=== PATIENT | female | born 1945 | race Hispanic/Latino ===

== ENCOUNTER 2019-06-19 05:04 | Emergency (ER) | payer OTHER, MEDICARE ==
[~2019-06-19 05:04] MED LIST: AMLODIPINE PO; JENTADUETO PO; NADO40TA19 PO; OMEP-272 PO; ROSU10TA22 PO; VALSARTAN PO
[2019-06-19 05:36] LABS: BASOPHILS % (AUTO) 0.7 % (0.0-5.0); EOSINOPHILS % (AUTO) 2.1 % (0.0-8.0); HEMATOCRIT 40.8 % (36-48); LYMPHOCYTES % (AUTO) 45.2 % (21.0-51.0); MEAN CORPUSCULAR HEMOGLOBIN 29.3 pg (27.0-33.0); MEAN CORPUSCULAR HGB CONC 34.1 g/dL (32.0-36.0); MONOCYTES % (AUTO) 6.7 % (3.0-13.0); NEUTROPHILS % (AUTO) 45.3 % (40.0-77.0); NUCLEATED RED BLOOD CELLS 0.1 % (0.0-0.19); PLATELET COUNT (AUTO) 229 K/uL (130-400); RED BLOOD CELL COUNT(AUTO) 4.74 MIL/uL (4.00-5.50); RED CELL DISTRIBUTION WIDTH 14.6 % (11.0-15.5); WHITE BLOOD COUNT (AUTO) 9.9 K/uL (4.8-10.8)
[2019-06-19 05:39] LABS: POTASSIUM 4.3 mmol/L (3.5-5.1)
[2019-06-19 05:42] LABS: INR 0.9 (0.85-1.15); PARTIAL THROMBOPLASTIN TIME 25.7 SEC (26.3-35.5); PROTHROMBIN TIME 9.5 SEC (9.6-11.6)
[2019-06-19 05:43] LABS: ALBUMIN 3.9 g/dL (3.5-5.0); BILIRUBIN,TOTAL 0.4 mg/dL (0.2-1.0); TOTAL PROTEIN, SERUM 7.8 g/dL (6.0-8.3)
[2019-06-19] MEDS ORDERED: ONDANSETRON HCL 4 MG/2 ML VIAL ONE (05:43)
[2019-06-19] MEDS ORDERED: HYDROCODONE/ACETAMINOPHEN 5/325 MG TAB ONE (05:43)
== END 2019-06-19 07:36 | disposition home or self-care (01) ==
LOC: EDH 05:04
DX: S16.1XXA Strain of muscle, fascia and tendon at neck level, initial encounter (principal); S00.83XA Contusion of other part of head, initial encounter; M54.9 Dorsalgia, unspecified; M62.838 Other muscle spasm; I10 Essential (primary) hypertension; E78.00 Pure hypercholesterolemia, unspecified; Z88.0 Allergy status to penicillin; Z88.8 Allergy status to other drugs, medicaments and biological substances; Z88.6 Allergy status to analgesic agent; W06.XXXA Fall from bed, initial encounter; Y93.89 Activity, other specified; Y92.89 Other specified places as the place of occurrence of the external cause; Y99.8 Other external cause status
CPT/HCPCS: 36415; 70450; 72125; 80053; 85025; 85610; 85730; 96374; 99285; J2405

== ENCOUNTER 2021-02-14 07:27 | Emergency (ER) | payer OTHER, MEDICARE ==
[~2021-02-14 07:27] MED LIST changes: -NADO40TA19 PO; +NADO40TA2 PO
[2021-02-14 07:53] LABS: APPEARANCE,URINE SL CLOUDY (CLEAR); BILIRUBIN,URINE SMALL (NEGATIVE); COLOR,URINE YELLOW (YELLOW); GLUCOSE, URINE (UA) NEGATIVE (NEGATIVE); KETONES,URINE 5 mg/dL (NEGATIVE); LEUKOCYTE ESTERASE ,URINE LARGE (NEGATIVE); NITRATE,URINE NEGATIVE (NEGATIVE); OCCULT BLOOD,URINE LARGE (NEGATIVE); PH,URINE 5.5 (5.0-8.0); PROTEIN,URINE >=300 mg/dL (NEGATIVE); UROBILINOGEN,URINE 0.2 mg/dL (0.2-1.0)
[2021-02-14 08:11] LABS: WBC,URINE 26-50 /HPF (0-1)
[2021-02-14 08:12] LABS: BACTERIA,URINE Many /HPF (None Seen); SQUAMOUS EPITHELIAL CELL,UR Rare /HPF (0-2)
[2021-02-14 08:12] LABS: BASOPHILS % (AUTO) 0.5 % (0.0-5.0); EOSINOPHILS % (AUTO) 3.3 % (0.0-8.0); HEMATOCRIT 40.9 % (36-48); LYMPHOCYTES % (AUTO) 37.2 % (21.0-51.0); MEAN CORPUSCULAR HEMOGLOBIN 28.6 pg (27.0-33.0); MEAN CORPUSCULAR HGB CONC 32.8 g/dL (32.0-36.0); MEAN CORPUSCULAR VOLUME 87.4 fL (79-99); NEUTROPHILS % (AUTO) 52.7 % (40.0-77.0); PLATELET COUNT (AUTO) 231 K/uL (130-400); RED BLOOD CELL COUNT(AUTO) 4.68 MIL/uL (4.00-5.50); RED CELL DISTRIBUTION WIDTH 13.7 % (11.0-15.5); WHITE BLOOD COUNT (AUTO) 7.3 K/uL (4.8-10.8)
[2021-02-14 08:13] LABS: CALCIUM OXALATE CRYSTALS,UR Few /LPF (None Seen)
[2021-02-14 08:14] LABS: HYALINE CASTS, URINE 0-1 /LPF (0-1 /LPF)
[2021-02-14] MEDS ORDERED: LEVOFLOXACIN 500 MG/D5W 100 ML 100 ML ONE (08:21)
[2021-02-14] MEDS ORDERED: SODIUM CHLORIDE 0.9% 1000ML 1,000 ML IV ONE (08:23)
[2021-02-14 08:27] LABS: ALBUMIN 3.6 g/dL (3.5-5.0); BILIRUBIN,TOTAL 0.3 mg/dL (0.2-1.0); POTASSIUM 4.4 mmol/L (3.5-5.1); TOTAL PROTEIN, SERUM 7.3 g/dL (6.0-8.3)
== END 2021-02-14 10:39 | disposition home or self-care (01) ==
LOC: EDH 07:27
DX: N30.00 Acute cystitis without hematuria (principal); E86.0 Dehydration; E78.00 Pure hypercholesterolemia, unspecified; I10 Essential (primary) hypertension; Z79.899 Other long term (current) drug therapy; Z88.6 Allergy status to analgesic agent; Z91.018 Allergy to other foods; Z88.8 Allergy status to other drugs, medicaments and biological substances; Z88.0 Allergy status to penicillin
CPT/HCPCS: 36415; 51702; 80053; 81001; 85025; 87088; 96365; 99284; J1956; J7030

== ENCOUNTER → 2022-07-16 | Outpatient (CLI) | payer OTHER, MEDICARE | END | disposition home or self-care (01) | LOC: RAH 09:36 | PROVIDERS: ATTEND Obstetrics & Gynecology | DX: Z12.31 Encounter for screening mammogram for malignant neoplasm of breast (principal) | CPT/HCPCS: 77067 ==

== ENCOUNTER 2025-07-03 09:33 | Emergency (ER) | payer OTHER, MEDICARE ==
[~2025-07-03] VITALS: Ht 154.9 cm; Wt 74.8 kg
[~2025-07-03 09:33] MED LIST changes: -NADO40TA2 PO; +NADO40TA45 PO
[2025-07-03 09:34] VITALS: BP 151/67; PULSE 83; RESP 16; TEMP 97.8
[2025-07-03] MEDS ORDERED: KETO10TA2 PO (10:25)
--- NOTE | 2025-07-03 10:25 | ERN ---
General Chief Complaint: Knee Injury/Swelling Stated Complaint: LEFT KNEE PAIN Time Seen by MD: 09:43 Time Seen by Midlevel: 09:43 Source: patient History of Present Illness Initial Comments Patient is an 80-year-old female presenting to the emergency department for evaluation of left atraumatic knee pain that started two days ago and has progressively worsened. The pain is worse with ambulation. She specifically denies any fall or direct injury to the area. Additionally, the patient reports feeling dehydrated. She also reports urinary hesitancy in his concern for urinary tract infection Allergies: Coded Allergies: Penicillins (Unverified Allergy, Severe, SWELLING, 03/17/15) SEWLLING AND ITCH acetaminophen (Unverified Allergy, Severe, ITCHING, 03/17/15) diazepam (Unverified Allergy, Severe, HIVES, 03/17/15) hydrochlorothiazide (Unverified Allergy, Severe, HIVES, 03/17/15) monico (Unverified Allergy, Severe, SWELLING, 03/17/15) triamterene (Unverified Allergy, Severe, HIVES, 03/17/15) Home Meds Active Scripts Ketorolac Tromethamine (Ketorolac Tromethamine) 10 Mg Tablet, 1 TAB PO BID for pain for 5 Days, #10 TAB 0 Refills Prov:MIRTA MCCARTY 07/03/25 Reported Medications Nadolol (Nadolol) 40 Mg Tablet, 40 MG PO HS, TAB 03/17/15 [Amlod/Valsal 5/320] No Conflict Check, 1 TAB PO DAILY 03/17/15 Omeprazole Magnesium (Omeprazole Magnesium) 20 Mg Capsule.dr, 40 MG PO ACBKFST, CAP 03/17/15 [Jentadueto 2.03/1000] No Conflict Check, 1000 MG PO AFTER DINNER 03/17/15 [Jentadueto 2.5/1OOO] No Conflict Check, 500 MG PO AFTER BREAKFAST 03/17/15 Rosuvastatin Calcium (Crestor) 10 Mg Tablet, 10 MG PO HS, TAB 03/17/15 Past Medical History Past Medical History: Diabetes-Type II, Hypertension Past Surgical History: Other Surgical History Other: BRSIN SX ROS Dictation CONSTITUTIONAL: Negative except for HPI HEAD/FACE: Negative except for HPI EENT: Negative except for HPI RESPIRATORY: Negative except for HPI GASTROINTESTINAL/ABDOMINAL: Negative except for HPI GENITOURINARY: Negative except for HPI MUSCULOSKELETAL: Negative except for HPI INTEGUMENTARY: Negative except for HPI NEUROLOGICAL/PSYCH: Negative except for HPI HEMATOLOGIC/LYMPHATIC: Negative except for HPI All Systems Negative, Except as noted above. 13 point review of systems assessed and all negative except for above. Physical Exam Physical Exam Dictation Vital Signs reviewed General Appearance: Alert, oriented x 3, no acute distress, well developed, nour ished. Head and Face: non-traumatic. Eyes: PERRL, pink conjunctivas, eyelid no trauma, anterior chamber with arcus senilis. Ears: Pinnas intact and no signs of trauma or erythema ear canals clear and no discharge TM no erythema Nose: No discharge, no bleeding. Oropharynx: Mouth normal, tongue pink, pharynx clear,no erythema, tonsils no exudates, no abscesses noted, mucous mem brane moist Neck: Supple, non-tender, no thyromegaly, no masses, no JVD, no bruits Breast:Deferred Chest:No tenderness, no crepitus, no paradoxical movement, no retractions Lungs:Clear, well-ventilated, symmetric, no rales, no wheezing, no rhonchi, no stridor, good breath sounds bilaterally Heart: Regular rate, regular rhythm, no murmur, no gallops Vascular: no peripheral edema, Abdomen: Soft, positive bowel sounds, nondistended, no guarding, nontender, no rebound, no masses no hepatomegaly, no splenomegaly, no Francis's sign, no hernias. Rectal: Deferred Genital: Deferred Neurological: Normal speech, motor function intact, sensory function intact Musculoskeletal: Neck nontender, full range of motion, back nontender, full range of motion, Extremities: nontender, full range of motion Skin: Color pink, dry, no turgor, no rash, no lacerations, no abrasions, no contusions. Lymphatic: Deferred Results Laboratory and Microbiology Lab and Micro Result Laboratory Tests Test 07/03/25 11:22 White Blood Count 9.3 K/uL (4.8-10.8) Red Blood Count 4.60 MIL/uL (4.00-5.50) Hemoglobin 12.6 g/dL (12.0-16.0) Hematocrit 38.2 % (36-48) Mean Corpuscular Volume 83.0 fL (79-99) Mean Corpuscular Hemoglobin 27.4 pg (27.0-33.0) Mean Corpuscular Hemoglobin Concent 33.0 g/dL (32.0-36.0) Red Cell Distribution Width 14.8 % (11.0-15.5) Platelet Count 225 K/uL (130-400) Mean Platelet Volume 9.3 fL (7.5-10.5) Immature Granulocyte % (Auto) 0.2 % (0-1) Neutrophils (%) (Auto) 65.5 % (40.0-77.0) Lymphocytes (%) (Auto) 24.8 % (21.0-51.0) Monocytes (%) (Auto) 5.7 % (3.0-13.0) Eosinophils (%) (Auto) 2.9 % (0.0-8.0) Basophils (%) (Auto) 0.9 % (0.0-5.0) Neutrophils # (Auto) 6.1 K/uL (1.8-7.7) Lymphocytes # (Auto) 2.3 K/uL (1.0-4.8) Monocytes # (Auto) 0.5 K/uL (0.1-1.0) Eosinophils # (Auto) 0.27 K/uL (0.00-0.70) Basophils # (Auto) 0.08 K/uL (0.00-0.20) Absolute Immature Granulocyte (auto 0.02 K/uL (0-1) Nucleated Red Blood Cells 0.0 % (0.0-0.19) Sodium Level 135 mmol/L (136-145) L Potassium Level 4.6 mmol/L (3.5-5.1) Chloride Level 100 mmol/L (101-111) L Carbon Dioxide Level 21 mmol/L (21-32) Blood Urea Nitrogen 15 mg/dL (7-18) Creatinine 1.0 mg/dL (0.5-1.0) Glomerular Filtration Rate Calc 56 mL/min (>90) Random Glucose 111 mg/dL (70-105) H Total Calcium 9.4 mg/dL (8.5-10.1) Labs Reviewed?: Yes MDM MDM: Patient is an 80-year-old female presenting to the emergency department for evaluation of left atraumatic knee pain that started two days ago and has progressively worsened. The pain is worse with ambulation. She specifically denies any fall or direct injury to the area. On physical examination patient has full range motion of the left knee. No obvious signs of external trauma. Distal pulses are intact. Left lower extremity is neurovascularly intact. X-ray performed does not reveal any acute fracture or dislocation. There is moderate amount of osteoarthritis present in the joint. Patient was given morphine in the emergency department and will be discharged home with orthopedic surgery for further evaluation Differential diagnosis: Fracture, contusion, dislocation, arthritis, dehydration, electrolyte abnormality There are no social concerns with this patient. Prescription drug management Prescriptions will include: None Medical management and examination interpretation discussions were had by me with other qualified healthcare professionals as indicated for the patient's care. ED Course Orders Procedure Category Date Status Time Knee 3vws Lt RAD 07/03/25 Resulted 09:48 Morphine 2mg Syg PHA 07/03/25 Complete (Morphine 2mg Syg) 10:00 Ketorolac PHA 07/03/25 Complete Tromethamine 15mg/Ml 10:00 Cbc With Differential LAB 07/03/25 Complete 11:06 Basic Metabolic Panel LAB 07/03/25 Complete 11:06 0.9%Nacl 1000ml (Ns PHA 07/03/25 Complete 1000ml) 11:30 Current Medications Medications (Trade) Dose Ordered Sig/Alber Route PRN Reason Start Time Stop Time Status Last Admin Dose Admin Ketorolac Tromethamine (toRADol) 15 mg ONCE ONCE IM 07/03/25 10:00 07/03/25 10:01 DC 07/03/25 09:58 Morphine Sulfate (morPHINE 2MG SYG) 2 mg ONCE ONCE IM 07/03/25 10:00 07/03/25 10:01 DC 07/03/25 09:59 Sodium Chloride 1,000 ml @ 0 mls/hr ONCE ONCE IV 07/03/25 11:30 07/03/25 11:31 DC 07/03/25 11:26 Vital Signs Date Time Temp Pulse Resp B/P (MAP) Pulse Ox O2 Delivery O2 Flow Rate FiO2 07/03/25 09:34 97.9 83 16 151/67 99 Room Air 0 DX & DISP Disposition: Discharge Departure Impression: Primary Impression: Left knee pain Additional Impressions: Mild dehydration, Urinary hesitancy Condition: Stable Scripts Nitrofurantoin/Nitrofuran Mac (Macrobid) 100 Mg Cap 1 CAP PO BID for 5 Days, #10 CAP 0 Refills Prov: MIRTA MCCARTY 07/03/25 Ketorolac Tromethamine (Ketorolac Tromethamine) 10 Mg Tablet 1 TAB PO BID for pain for 5 Days, #10 TAB 0 Refills Prov: MIRTA MCCARTY 07/03/25 Additional Instructions: Your x-ray does not show any evidence of an acute fracture or dislocation. Your blood work shows mild dehydration. You were given 1 L of IV fluids in the emergency department. Have started you on oral antibiotics for a presumed urinary tract infection given your symptoms. Please follow up with your primary care doctor in 2-3 days for repeat evaluation. Referrals: ELVIE HORNE M.D. (PCP) Time of Disposition: 10:24 I have reviewed the case, and I agree with, Diagnosis and Plan I performed the substantive portion of the visit. I have reviewed and personally made and approve the management plan that is documented in the note by myself or the BRANDAN. I acknowledge for responsibility for the patient's management plan. MRITA MCCARTY Jul 03, 2025 10:25
--- NOTE | 2025-07-03 10:35 | HMCIMG ---
EXAM: CR left Knee, 3 View. CLINICAL HISTORY: r/o fx COMPARISON: None provided. FINDINGS: BONES: No acute fracture or aggressive appearing osseous lesion. JOINTS: The joint spaces show no significant degenerative disease. There is no joint effusion appreciated. SOFT TISSUES: The soft tissues are unremarkable. IMPRESSION: No acute osseous pathology evident. /[place]
[2025-07-03] MEDS: 0.9%NACL 1000ML 1,000 ML IV ONE (11:26)
[2025-07-03 11:30] LABS: IMMATURE GRANULOCYTE ABSOLUTE 0.02 K/uL (0-1); NUCLEATED RED BLOOD CELLS 0.0 % (0.0-0.19); PLATELET COUNT (AUTO) 225 K/uL (130-400); RED BLOOD CELL COUNT(AUTO) 4.60 MIL/uL (4.00-5.50); RED CELL DISTRIBUTION WIDTH 14.8 % (11.0-15.5); WHITE BLOOD COUNT (AUTO) 9.3 K/uL (4.8-10.8)
[2025-07-03 11:40] LABS: CREATININE 1.0 mg/dL (0.5-1.0); GLOMERULAR FILTR. RATE CALC 56.0 mL/min (>90); GLUCOSE,RANDOM 111.0 mg/dL (70-105); SODIUM SERUM 135.0 mmol/L (136-145); UREA NITROGEN, BLOOD 15.0 mg/dL (7-18)
[2025-07-03] MEDS ORDERED: MACR100 PO (11:52)
== END 2025-07-03 12:03 | disposition home or self-care (01) ==
LOC: EDH 09:33
DX: M25.562 Pain in left knee (principal); E86.0 Dehydration; R39.11 Hesitancy of micturition; E11.9 Type 2 diabetes mellitus without complications; I10 Essential (primary) hypertension; Z88.0 Allergy status to penicillin
CPT/HCPCS: 99284; 96360; 80048; 85025; 36415; 73562; 96372 ×2; J1885; J2270; J7030